=== PATIENT | male | born 1955 | race Hispanic/Latino ===

== ENCOUNTER 2018-12-04 07:58 | Day surgery (SDC) | payer OTHER ==
--- NOTE | 2018-12-04 08:32 | Anesthesia Day of Surgery ---
Anesthesia Day of Surgery - Day of Surgery Patient Examined: Yes Patient H&P Reviewed: Yes Patient is NPO: Yes
--- NOTE | 2018-12-04 08:32 | Anesthesia Consultation ---
Anesthesia Consult and Med Hx Date of service: 12/04/18 - Airway Anesthetic Teeth Evaluation: Good, Chipped, Crowns ROM Head & Neck: Adequate Mental/Hyoid Distance: Adequate Mallampati Class: Class III Intubation Access Assessment: Possibly Difficult - Pre-Operative Health Status ASA Pre-Surgery Classification: ASA2 Proposed Anesthetic Plan: General - Pulmonary Hx Smoking: Yes (RARE CIGAR USE) Hx Sleep Apnea: Yes (DX SLEEP APNEA WITH CPAP USE.) - Cardiovascular System Hx Hypertension: No - Central Nervous System Hx Back Pain: Yes (FROM STONE) - Endocrine Hx Renal Disease: Yes (renal stone) Hx Hypothyroidism: Yes (ON DAILY MEDS) - Other Systems Hx Cancer: No
[2018-12-04] MEDS ORDERED: NACL 0.9% 1000 ML 1,000 ML IV SCH (09:00)
[2018-12-04] MEDS ORDERED: PEPCID IV NR (09:00)
[2018-12-04] MEDS ORDERED: VERSED IV NR (09:00)
[2018-12-04] MEDS ORDERED: DIPRIVAN 10 MG/ML IV ONE (10:15)
[2018-12-04] MEDS ORDERED: XYLOCAINE MPF 2% ONE (10:15)
[2018-12-04] MEDS ORDERED: DILAUDID ONE (10:15)
[2018-12-04] MEDS ORDERED: WATER FOR IRRIG STERILE IR ONE (10:41)
[2018-12-04] MEDS ORDERED: OMNIPAQUE 300 MG/50 ML (CATH LAB) IV ONE (10:42)
[2018-12-04] MEDS ORDERED: ANCEF/STERILE WATER 2 GM/20 ML IV NR (11:00)
[2018-12-04] MEDS ORDERED: TORADOL ONE (11:29)
[2018-12-04] MEDS ORDERED: ZOFRAN ONE (11:29)
--- NOTE | 2018-12-04 11:45 | Short Stay Summary ---
Short Stay Documentation Date of service: 12/04/18 - History H&P: obtained from office - Allergies and Medications Current Medications: Allergies No Known Allergies Allergy (Verified 11/28/18 09:54) Home Medications Medication Instructions Recorded Confirmed Last Taken Type Multivit-Min/FA/Lycopen/Lutein 1 each PO DAILY 11/28/18 12/04/18 12/03/18 23:30 History [Centrum Silver Men Tablet] Thyroid,Pork [Fire Control Technician Thyroid 120] 60 mg PO QHS 11/28/18 12/04/18 12/03/18 23:30 History Active Medications Cefazolin Sodium (Ancef/Sterile Water 2 Gm/20 Ml) 2 gm IV PREOP NR Stop: 12/04/18 15:00 Famotidine (Pepcid) 20 mg IV PREOP NR Stop: 12/04/18 12:00 Last Admin: 12/04/18 09:56 Dose: 20 mg Documented by: Sodium Chloride (Nacl 0.9% 1000 Ml) 1,000 mls @ 100 mls/hr IV DIRECT CHAD Last Admin: 12/04/18 09:55 Dose: 100 mls/hr Documented by: Midazolam HCl (Versed) 2 mg IV PREOP NR Stop: 12/04/18 23:59 Last Admin: 12/04/18 10:00 Dose: 2 mg Documented by: - Physical exam General appearance: no acute distress - Brief post op/procedure progress note Date of procedure: 12/04/18 Pre-op diagnosis: left uret 7mm Post-op diagnosis: same Procedure: urs laser sbe, stent, 6x28 dilation Anesthesia: GETA Findings: no dev Surgeon: IAN MATTSON Estimated blood loss: minimal Condition: stable - Hospital course Hospital course: orpachu home - Disposition Condition at discharge: Good Disposition: DC-01 TO HOME OR SELFCARE Short Stay Discharge Plan Activity: advance as tolerated Diet: advance as tolerated Follow up with: IAN MATTSON MD [Staff Physician] - 10 Days
[2018-12-04 13:07] VITALS: BP 121/83
--- NOTE | 2018-12-04 13:30 | Post Anesthesia Evaluation ---
- Post Anesthesia Evaluation Patient Participated: Yes Airway Patent: Yes Stable Respiratory Function: Yes Nausea/Vomiting: No Temp > 96.8F: Yes Pain Manageable: Yes Adequeate Hydration: Yes Anesthesia Complications: No
--- NOTE | 2018-12-05 08:01 | Fluoroscopy Report ---
FLUORO RETROGRADE UROGRAPHY FLUOROSCOPY URETER/NEPHROSTOMY DILATATION LEFT INDICATION: Left ureteral calculus. COMPARISON: None similar at this institution. IMAGES/CINE CLIPS: 14+2 FINDINGS: Senior Manager Asset Protection images from 10:31 AM demonstrate nonobstructive bowel gas pattern and a questionable/nonspecific density projecting below the left 12th rib. Subsequent bilateral retrograde pyelograms unremarkable on the right. No hydronephrosis on either side. Left distal ureteral nonfilling noted with nonspecific, though presumed peristaltic waviness of contrast filled distal left ureter. Balloon dilatation of the left distal ureteral noted on images from 10:45 AM. Left-sided stone visualized, broken with holmium laser and removed with graspers. Final images demonstrate a satisfactorily positioned left ureteral stent. CONCLUSION: Findings, as above. Please also correlate with Dr. Tejada's procedural notes. Thank you for the opportunity to participate in this patient's care.
--- NOTE | 2018-12-09 13:12 | Operative Report ---
Operative Report Operative Report: Dictated
--- NOTE | 2018-12-18 09:59 | Operative Report ---
PREOPERATIVE DIAGNOSIS: Left ureteral 7 mm stone. POSTOPERATIVE DIAGNOSIS: Left ureteral 7 mm stone. PROCEDURE: Ureteroscopy, laser stone basket extraction, stent. Holmium laser fragmentation, indicated a stent placement, staged for future removal. ANESTHESIA: General. FINDINGS: Distal left ureteral stone. SURGEON: Darnell Tejada MD ESTIMATED BLOOD LOSS: Minimal. CONDITION: Stable. CLINICAL INDICATIONS: The patient counseled RCBA, antibiotics, SCDs. DESCRIPTION OF PROCEDURE: Transferred to OR suite in supine position, anesthesia. Prior to the procedure, SCDs, antibiotics, dorsal lithotomy, prepped and draped in standard fashion. A 22-Kinyarwanda scope passed, normal penile, bulbar urethra, moderately large lateral lobes. Entering bladder, pancystoscopy 30 and 70 degree lens, left. Right UO cannulated. Normal right retrograde pyelogram. Left UO cannulated, filling defect, hydroureter. Glidewire passed 0.35 up to the left renal pelvis. Balloon dilator, last 4 cm, dilated, only about 3-4 cm up the ureter to 7 atmospheres, removed. Rigid ureteroscope passed, stone identified, holmium laser passed, fragmented the stone to smaller and smaller pieces, some of them were too small to grasp, some fragments dropped in the bladder. Scope was then passed to the proximal ureter. No residual stones identified. Scope withdrawn. Wire backloaded on the cystoscope. A 6-Kinyarwanda double-J stent was then placed over the wire under direct and fluoroscopic visualization. When the wire and string was removed, nice proximal J, nice distal J in the bladder. Scope was withdrawn. Exam under anesthesia, prostate, no nodules on exam. Testicles bilateral descended with no masses. The patient awakened and transferred to PACU in good and stable condition. PLAN: Staged for future removal of stent. JOB# [id number] ATS/NTS
== END 2018-12-04 07:59 | disposition home or self-care (01) ==
LOC: OR 07:58
PROVIDERS: ATTEND Urology
DX: N20.1 Calculus of ureter (principal); F17.210 Nicotine dependence, cigarettes, uncomplicated; G47.30 Sleep apnea, unspecified; E03.9 Hypothyroidism, unspecified; Z98.890 Other specified postprocedural states; Z79.899 Other long term (current) drug therapy
CPT/HCPCS: 52356; 74420; 74485; A4217; C1726; C1758; C1769; C2617; J0690; J1170; J1885; J2250; J2405; J2704; J7030; Q9967